=== PATIENT | female | born 1995 | race Caucasian/White ===

== ENCOUNTER 2017-05-30 05:30 | Inpatient (IN) | payer OTHER ==
[~2017-05-30] VITALS: Ht 167.6 cm; Wt 88.9 kg
[~2017-05-30 05:30] MED LIST: DOCU-41 PO; IBUP800T28 PO; OXYC-284 PO; PREN-100 PO
[2017-05-30] MEDS ORDERED: Lactated Ringer's 1,000 ML IV SCH (06:18)
[2017-05-30] MEDS ORDERED: Lactated Ringer's 500 ML IV PRN (06:18)
[2017-05-30] MEDS ORDERED: Ondansetron 2 mg/mL 2 mL Inj IVPUSH PRN (06:20)
[2017-05-30] MEDS ORDERED: hydrALAZINE 20 mg/mL Inj IVPUSH PRN (06:20)
[2017-05-30] MEDS ORDERED: Dexamethasone 4 mg/mL Inj IVPUSH PRN (06:20)
[2017-05-30] MEDS ORDERED: fentaNYL-PF 50 mCg/mL 2 mL Inj IVPUSH PRN ×3 (06:20→07:15)
[2017-05-30] MEDS ORDERED: Phenylephrine 10,000 mCg/mL Inj IVPUSH PRN (06:20)
[2017-05-30] MEDS ORDERED: EPHEDrine Sulfate 50 mg/mL Inj IVPUSH PRN (06:20)
[2017-05-30] MEDS ORDERED: Labetalol 5 mg/mL 20 mL Inj IV PRN (06:20)
[2017-05-30] MEDS ORDERED: Atropine 0.4 mg/mL Inj IVPUSH PRN (06:20)
[2017-05-30] MEDS ORDERED: HYDROmorphone 1 mg/mL Inj IVPUSH PRN (06:20)
[2017-05-30] MEDS ORDERED: MetoCLOpramide 5 mg/mL 2 mL Inj IVPUSH PRN (06:20)
[2017-05-30] MEDS ORDERED: Oxytocin 10 Unit/mL Inj IM PRN ×2 (06:55→10:05)
[2017-05-30] MEDS ORDERED: Carboprost 250 mCg/mL Inj IM PRN ×2 (06:55→10:05)
[2017-05-30] MEDS ORDERED: Oxytocin 30 Units/500 mL LR 30 UNITS in IV Premix 1 EACH IV PRN ×3 (06:55→23:55)
[2017-05-30] MEDS ORDERED: Methylergonovine 0.2 mg/mL Inj IM PRN ×2 (06:55→10:05)
[2017-05-30] MEDS ORDERED: Sodium Chloride LOK Flush 10 mL Syringe IVFLUSH PRN (06:55)
[2017-05-30] MEDS ORDERED: Lactated Ringer's 1,000 ML IV PRN (06:55)
[2017-05-30] MEDS ORDERED: Hemorrhage Kit, Post Partum XX ONE ×2 (06:55→10:05)
[2017-05-30 07:09] LABS: Mean Corpuscular Hemoglobin 26.4 pg (27.0-35.0); Mean Corpuscular Volume 79.5 fL (81-100)
[2017-05-30] MEDS ORDERED: fentaNYL 2 mCg/mL-Bupivicaine 0.125% 100 mL Premix EPIDURAL ONE (07:20)
--- NOTE | 2017-05-30 07:23 | PCM.HPANE ---
Patient Data Date of Service: May 30, 2017 Surgeon Admitting Provider:Adiel Valencia MD Attending Provider:Adiel Valencia MD Primary Care Physician:Christiana Wagner MD Other Provider:Alin Jenkins Anesthesia Reason for Visit Term Labor Ht/WT & BMI Weight (Kilograms): 88.9 Body Mass Index 31.6 Allergies Coded Allergies: No Known Allergies (Unverified Allergy, Unknown, 04/15/14) latex (Verified Allergy, Unknown, 04/16/14) Past Anesthesia History Anesthesia History: Denies:: Abnormal Airway Diabetes History Hx Diabetes?: No MRSA MRSA: No Medications Hypertension Medication: No Home Meds Incl Beta Frank: No Active Scripts Docusate Sodium (Colace)100 Mg [id number] Mg PO BID PRN For Constipation #60 CAPSULE Ref 0 Prov:Adiel Valencia MD 04/18/14 Oxycodone HCl/Acetaminophen 5-325 (Percocet 5-325)1 Each Tablet1-2 Each PO Q4 PRN For Pain #20 TABLET Prov:Adiel Valencia MD 04/18/14 Ibuprofen 800 Mg [id number] Mg PO TID PRN For Pain #30 TABLET Prov:Adiel Valencia MD 04/18/14 Reported Medications Vits #90/Iron Fum/FA ( Formula Tablet)1 Each Tablet1 Each PO DAILY 04/16/14 History History of ENT Problems?: No HEENT History: Denies:: Abnormal Airway Denture Type: None Teeth Condition: Within Normal Limits Hx of Heart Problems?: No Cardiovascular History: Denies:: Cardiac Surgery Chest Pain Hx of Respiratory Problem?: No Respiratory History: Denies:: Asthma Hx Neurologic Problems?: No Neurological History: Denies:: CVA Hx of GI Problems?: No Hx of Problems?: No Female Hx: Positive for:: Currently Hx Musculoskeletal Problems?: No Hx of Psycho/Social Problems?: No Hx Surgeries?: No Hx Diabetes: No Stop/Bang Treated for Sleep Apnea?: No Do You Have a CPAP Machine?: No SHREYAS Risk Assessment: Low Risk, <3 Yes Risk Assessment Category Category 1A: Patient has history of documented sleep apnea, and HAS NOT received any narcotic, sedative or anesthesia administration during this stay. Category 1B: Patient has history of documented sleep apnea, and HAS received any narcotic , sedative or anesthesia administration during this stay Category 2: Patient has SUSPECTED Obstructive Sleep Apnea, and HAS received any narcotic , sedative or anesthesia administration during this stay. Category 3: Patient has SUSPECTED Obstructive Sleep Apnea and HAS NOT received narcotic, sedative or anesthesia administration during this stay. Category 4: Outpatient in Procedural Areas with known sleep apnea or who screen positive for High Risk via the STOP/BANG questionnaire. Exam Exam General Appearance: Alert, Oriented X3, Cooperative HEENT/AIRWAY: Neck Movement (> 3 FB) Lungs: Clear to Auscultation, Normal Air Movement Heart: Regular Rate/Rhythm, Normal S1, Normal S2 Meds/Labs/Diagnostics Labs Plt 181 Plan Impression Patient chart reviewed, patient interviewed and anesthestic plan with risks, benefits, and alternatives discussed, and informed consent obtained. NPO per Anesth. Guidelines: No ASA Physical Status: ASA2 Mod Systemic Disease Anesthetic Plan: Epidural Bene/Risks/Altern/Consents: Yes HP Complete Prior to Induction: Yes Steven Eden MD May 30, 2017 06:16
--- NOTE | 2017-05-30 08:15 | HP ---
[address] [address] HISTORY AND PHYSICAL PATIENT: RIVER FERNANDEZ : 1995 MR#: [id number] ADMIT: 05/30/2017 JOB ID: [id number] CHIEF COMPLAINT: Contractions. HISTORY OF PRESENT ILLNESS: This is a 21-year-old obstetrical patient of mine who is a 2, para 1 at 40 and 6 weeks estimated gestational age who presents to labor and delivery complaining of increasing frequency of painful contractions starting about 3 o'clock this morning. She reports no vaginal discharge and has no other acute complaints except for the contractions. Upon examination she is found to be akua about every 2-3 minutes with strong contractions. heart tracing is reactive but with variables and a few late scattered around after some contractions. She is 5.5 cm, 80% effaced, posterior position at about -2 station. She was admitted for expectant management. PAST MEDICAL HISTORY: Patient's obstetrical history is significant for prior vaginal in 2013 at 41 weeks of a 6 pounds 14 ounce baby girl without significant problems although that towards the end was complicated with some -induced hypertension. This has not been associated with hypertension and this has been fairly unremarkable with a little bit of late presentation to care at 11 weeks gestation. Her labs show blood type to be O-positive, rubella immune, negative to hepatitis B, hep C, HIV, HSV 1 and 2 and negative antibody screen. Hematocrit at 11 weeks was 39.5 and at 37 weeks it was 33.4. Initial Pap smear and gonorrhea and chlamydia are all negative. Hemoglobin A1c at initial presentation was 5.2, and the patient declined diabetic screening at 28 weeks. MSAFP test was negative. GBS test was negative. The whole course has been unremarkable. PAST MEDICAL HISTORY: Is significant for some depression for which she had been treated with sertraline but has not been on that medicine during her . Also she has a history of eczema. Otherwise medical history is entirely unremarkable. SURGICAL HISTORY: Entirely negative. CURRENT MEDICATIONS: vitamins. Otherwise she is on no regular medications. ALLERGIES: She has no known drug allergies, although she does state she is allergic to LATEX. FAMILY HISTORY: Significant for diabetes in her brother and maternal grandparents and hypertension in her brother and her mother. Otherwise is noncontributory. SOCIAL HISTORY: The patient lives in [place] with her fiance and 2-year-old daughter. 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 The patient is a nonsmoker having quit in August 2016. She does not drink any alcohol. REVIEW OF SYSTEMS: Denies any recent illness. No chest pain, palpitations, shortness of breath. No abdominal pain except for the contraction pain. No significant swelling in her feet. No recent illness. The baby has been moving every day. No headaches. No blurry vision. OBJECTIVE: Well-developed, well-nourished woman in no apparent distress. She is afebrile. Pulse is 83, respiratory rate is 22, blood pressure 134/78. Lungs are clear to auscultation bilaterally with good air movement. Heart is regular rate and rhythm. No significant murmurs heard. Abdomen is gravid with normoactive bowel sounds. Otherwise is unremarkable. Extremities showed no pitting edema, but her feet are a little puffy. She has normal deep tendon reflexes. Cervical examination, cervix being 5.5 cm, 80% effaced, -2 station. ASSESSMENT AND PLAN: Intrauterine , at term, in labor. PLAN: The patient was admitted and will provide routine expectant management. Her GBS status is negative. She is interested in an epidural and I have already spoken to Anesthesia about providing that service for her. I anticipate a rapid labor progress as she rapidly delivered with her prior . She is interested in getting a tubal ligation and this has been arranged and an obstetrical consultation was performed and there is a signed tubal ligation consent form in the chart dated March 31. We hope to arrange this shortly after her delivery.
[2017-05-30] MEDS ORDERED: Witch Hazel-Glycerin Pads TOPICAL PRN (10:05)
[2017-05-30] MEDS ORDERED: LANOlin HPA 7 Gm Ointment TOPICAL PRN (10:05)
[2017-05-30] MEDS ORDERED: Benzocaine (Dermoplast) 20% 60 Gm Spray TOPICAL PRN (10:05)
--- NOTE | 2017-05-30 10:57 | OP ---
[address] [address] OPERATIVE REPORT PATIENT: RIVER FERNANDEZ : 1995 MR#: [id number] ADMIT: 05/30/2017 JOB ID: [id number] DATE OF SURGERY: 05/30/2017 SURGEON: Adiel Valencia M.D. PREOPERATIVE DIAGNOSIS(ES): POSTOPERATIVE DIAGNOSIS(ES): The patient had a spontaneous vaginal delivery as described below. PROCEDURE: Normal spontaneous vaginal delivery. Please see my admission history and physical for her admitting circumstances. She had an epidural placed and this was very effective in helping her with her discomfort. She progressed fairly rapidly throughout the end of the first stage of labor. The baby's heart tracing showed a low baseline around 120 and sometimes lower into about 100 with some variables and some late occasionally with contractions. Otherwise the heart tracing showed nice reactivity with accelerations. She contracted fairly regularly every 2-3 minutes. Artificial rupture of membranes was performed at 8:57 showing clear fluid when she was 8 cm and completely effaced. She was found to be completely dilated and effaced at 9:30 and began pushing. The baby was in an occiput anterior position. She delivered the baby's head and there was a tight nuchal cord that was not able to be reduced before she delivered the rest of the baby. The delivery was completed at 9:42. The placenta delivered spontaneously and intact at 9:51. Her perineum was inspected and there was left-sided periurethral laceration that was not actively bleeding and was left to heal spontaneously. Cervix showed no significant trauma. There were no other lacerations noted and there were no other complications. Estimated blood loss 350 cc. The baby is a baby boy with Apgars of 8 and 9, and weight is still pending. Anticipate routine care and orders were written. The patient is interested in having a bilateral tubal ligation done and the consent form was signed back in March and she has seen obstetrics for consultation already. This procedure will probably be done late this afternoon or tomorrow morning. I anticipate the patient will be able to be discharged tomorrow provided everything is going smoothly.
--- NOTE | 2017-05-30 13:29 | PCM.CONSUR ---
Subjective Date of Service: May 30, 2017 History of Present Illness This is a 21-year-old now 2, para 2 who delivered at 40 and 6 weeks estimated gestational age after presenting to labor and delivery complaining of increasing frequency of painful contractions starting about 3 o'clock this morning. She reported no vaginal discharge and has no other acute complaints except for the contractions. She was akua about every 2-3 minutes with strong contractions. She was found to be 5.5 cm, 80% effaced, posterior position at about -2 station. She was admitted for expectant management. She delivered at 9:42 am. She desires permanent sterilization and has been seen by Dr Powell in clinic and consented at that time. Allergy Allergies: Coded Allergies: No Known Allergies (Unverified Allergy, Unknown, 04/15/14) latex (Verified Allergy, Unknown, 04/16/14) Medications Hypertension Medication: No Home Meds Incl Beta Blockers: No Docusate Sodium (Colace) 100 Mg Capsule 100 MG PO BID PRN PRN For Constipation Prescribed by: BYRON SAMUEL MD Ibuprofen (Ibuprofen) 800 Mg Tablet 800 MG PO TID PRN PRN For Pain Prescribed by: BYRON SAMUEL MD Ibuprofen (Ibuprofen) 800 Mg Tablet 800 MG PO Q6H PRN PRN For Pain Prescribed by: BYRON SAMUEL MD Oxycodone HCl/Acetaminophen 5-325 (Percocet 5-325) 1 Each Tablet 1-2 EACH PO Q4 PRN PRN For Pain Prescribed by: BYRON SAMUEL MD Vits #90/Iron Fum/FA ( Formula Tablet) 1 Each Tablet 1 EACH PO DAILY (Reported) oxyCODONE-Acetaminophen 5-325 mg (oxyCODONE-Acetaminophen 5-325 mg) 1 Each Tablet 1-2 TAB PO Q4H PRN PRN For Pain Prescribed by: BYRON SAMUEL MD Past Surgical History Surgeries: No Patient/Family Past Surgical: Denies:: Anesthesia Reactions, Blood Transfuse Reaction, Blood Transfusions, Malignant Hyperthermia Social History Hx Alcohol Use: No Hx Substance Use: No Hx Tobacco Use: No PMH HEENT History History of ENT Problems?: No HEENT History: Denies:: Abnormal Airway Cardiovascular History History of Heart Problems?: No Cardiovascular History: Denies:: Cardiac Surgery Chest Pain Respiratory History of Respiratory Problem: No Respiratory History: Denies:: Asthma Neurological History Hx Neurologic Problems?: No Neurological History: Denies:: CVA Gastrointestinal History HX of GI Problems?: No Genitourinary History Hx of Gu Problems?: No Female/Male History Reproductive History Female: Positive for: Currently ? Musculoskeletal History Hx Musculoskeletal Problems?: No Psycho Social History Hx of Psycho/Social Problems?: No Other History Diabetes: No Social History Smoking Status: Never Smoker Objective Exam Lab & Micro Results Laboratory Tests Test 05/30/17 06:30 White Blood Count 10.6th/mm3 (3.8-10.1) Red Blood Count 4.43mil/mm3 (3.90-5.20) Hemoglobin 11.7g/dL (12.0-15.6) Hematocrit 35.2% (35.0-46.0) Mean Corpuscular Volume 79.5fL (81-100) Mean Corpuscular Hemoglobin 26.4pg (27.0-35.0) Mean Corpuscular Hemoglobin Concent 33.2% (32.0-37.0) Red Cell Distribution Width 14.5% (12.3-15.4) Platelet Count 181bil/L (150-400) Result Diagram: 05/30/17 0630 Review of Systems: Constitutional: Negative, except as otherwise mentioned in the history above. Ophthalmologic: Negative, except as otherwise mentioned in the history above. Cardiovascular: Negative, except as otherwise mentioned in the history above. Respiratory: Negative, except as otherwise mentioned in the history above. Gastrointestinal: Negative, except as otherwise mentioned in the history above. Genitourinary: Negative, except as otherwise mentioned in the history above. Musculoskeletal: Negative, except as otherwise mentioned in the history above. Neurological: Negative, except as otherwise mentioned in the history above. Psychiatric: Negative, except as otherwise mentioned in the history above. Hematologic/Lymphatic: Negative, except as otherwise mentioned in the history above. Allergic/Immunologic: Negative, except as otherwise mentioned in the history above. H&P Surgical Exam Exam General: Alert, Oriented X3, Cooperative HEENT: Within normal limits & unremarkable Respiratory: Clear to Auscultation Cardiac: Regular Rate/Rhythm, Complains of Chest Pain Breasts: Not Indicated Pelvic: Not Indicated Assessment & Plan Assessment Bilateral Tubal ligation - NPO after midnight - Pain will be managed with PO meds Problems: (1) Sterilization consult Status: Resolved ICD Code: Z30.09 Resuscitation Status: CPR: Attempt Resuscitation Attending Statement: The patient was seen and examined together with Paula Peters DO on 2016 and I agree with the history, exam and plan as outlined in the note above. Paula Kim DO May 30, 2017 13:29 Rodrigo Flores MD Jun 03, 2017 19:32
[2017-05-30] MEDS: Lactated Ringer's 1,000 ML IV SCH (18:04)
[2017-05-30] MEDS: Ascorbic Acid 500 mg Tablet PO SCH (20:06)
[2017-05-31] MEDS: oxyCODONE-Acetamin 5-325 mg Tablet PO PRN ×4 (00:20→16:03)
[2017-05-31] MEDS: Lactated Ringer's 1,000 ML IV SCH ×3 (02:04→10:04)
[2017-05-31 06:42] LABS: Mean Corpuscular Hemoglobin 25.8 pg (27.0-35.0); Mean Corpuscular Volume 80.9 fL (81-100)
[2017-05-31] MEDS ORDERED: Sodium Citrate-Citric Acid 15 mL Solution PO ONE (07:25)
[2017-05-31] MEDS ORDERED: Sodium Citrate-Citric Acid 15 mL Solution ONE (07:37)
--- NOTE | 2017-05-31 07:48 | PCM.SURGPR ---
Pre-Op Interval Note See H&P Dated: May 30, 2017 Changes made to H&P Abdomen soft and nontender. Fundus firm and non-tender at umbilicus. Pre-Op Interval Note Changes made to H&P Prior to obtaining written consent for performance of a post- bilateral tubal ligation (PPBTL), I personally counselled the patient and her regarding the indications, alternatives, risks and complications associated with PPBTL. In addition the patient understands that a PPBTL is intended to produce permanent, irreversible inability to conceive children in the future. In additon she understand that a PPBTL carries with it a small (@ .5%) risk of failure to prevent conception. With full understanding of the above the written consent was sign before a witness and we'll be proceeding with the procedure this AM. Cezar Frausto MD May 31, 2017 07:48
--- NOTE | 2017-05-31 07:50 | PCM.HPANE ---
Patient Data Surgeon Admitting Provider:Adiel Valencia MD Attending Provider:Adiel Valencia MD Primary Care Physician:Christiana Wagner MD Other Provider:Alin Jenkins Anesthesia Reason for Visit Term Labor TERM LABOR Ht/WT & BMI Weight (Kilograms): 88.9 Body Mass Index Allergies Coded Allergies: No Known Allergies (Unverified Allergy, Unknown, 04/15/14) latex (Verified Allergy, Unknown, 04/16/14) Past Anesthesia History Anesthesia History: Denies:: Abnormal Airway, Anesthesia Reactions, Malignant Hyperthermia Diabetes History Hx Diabetes?: No MRSA MRSA: No Medications Hypertension Medication: No Home Meds Incl Beta Frank: No Active Scripts Docusate Sodium (Colace)100 Mg [id number] Mg PO BID PRN For Constipation #60 CAPSULE Ref 0 Prov:Adiel Valencia MD 04/18/14 Oxycodone HCl/Acetaminophen 5-325 (Percocet 5-325)1 Each Tablet1-2 Each PO Q4 PRN For Pain #20 TABLET Prov:Adile Valencia MD 04/18/14 Ibuprofen 800 Mg [id number] Mg PO TID PRN For Pain #30 TABLET Prov:Adiel Valencia MD 04/18/14 Reported Medications Vits #90/Iron Fum/FA ( Formula Tablet)1 Each Tablet1 Each PO DAILY 04/16/14 History History of ENT Problems?: No HEENT History: Denies:: Abnormal Airway Denture Type: None Teeth Condition: Within Normal Limits Hx of Heart Problems?: No Cardiovascular History: Denies:: AICD Abdominal Aortic Aneurism Atrial Fibrillation Cardiac Surgery Chest Pain Congestive Heart Failure Coronary Artery Disease Edema Heart Murmur Hypertension Irregular Heartbeat Pacemaker Peripheral Vascular Rheumatic Fever Thrombophlebitis Valvular Heart Disease Hx of Respiratory Problem?: No Respiratory History: Denies:: Asthma COPD Chest Surgery Cough Dyspnea Emphysema Hemoptysis Oxygen Administration Pneumonia Pulmonary Embolism Tuberculosis Use of C-PAP Machine Use of Inhalers / NEBS Hx Neurologic Problems?: No Neurological History: Denies:: CVA Hx of GI Problems?: No Hx of Problems?: No Female Hx: Positive for:: Currently Hx Musculoskeletal Problems?: No Hx of Psycho/Social Problems?: No Hx Surgeries?: No History Blood Transfusions: Denies:: Blood Transfuse Reaction Blood Transfusions Hx Diabetes: No Hx Alcohol Use: NoHx Substance Use: No Smoking Status: Never Smoker Stop/Bang Treated for Sleep Apnea?: No Do You Have a CPAP Machine?: No SHREYAS Risk Assessment: Low Risk, <3 Yes Risk Assessment Category Category 1A: Patient has history of documented sleep apnea, and HAS NOT received any narcotic, sedative or anesthesia administration during this stay. Category 1B: Patient has history of documented sleep apnea, and HAS received any narcotic , sedative or anesthesia administration during this stay Category 2: Patient has SUSPECTED Obstructive Sleep Apnea, and HAS received any narcotic , sedative or anesthesia administration during this stay. Category 3: Patient has SUSPECTED Obstructive Sleep Apnea and HAS NOT received narcotic, sedative or anesthesia administration during this stay. Category 4: Outpatient in Procedural Areas with known sleep apnea or who screen positive for High Risk via the STOP/BANG questionnaire. Low Risk, <3 Yes Exam Exam General Appearance: Alert, Oriented X3, Cooperative HEENT/AIRWAY: Neck Movement (> 3 FB) Lungs: Clear to Auscultation, Normal Air Movement Heart: Regular Rate/Rhythm, Normal S1, Normal S2 Meds/Labs/Diagnostics Admission Meds Current Medications Lactated Ringer's (Lr) 1,000 ml @ 125 mls/hr Q8H IV Last administered on 07:43; Start 05/30/17 at 10:04 Ferrous Sulfate (Feosol) 325 mg BIDWM PO Last administered on 05/30/17 20:06; Start 05/30/17 at 17:30 Ascorbic Acid (Vitamin C) 500 mg BIDWM PO Last administered on 05/30/17 20:06 ; Start 05/30/17 at 17:30 Citric Acid/ Sodium Citrate (Bicitra) 15 ml ONCE ONCE PO Last administered on 05/31/17 07:43; Start 05/31/17 at 07:25; Stop 05/31/17 at 07:27; Status DC Labs Test 05/31/17 06:26 White Blood Count 13.8th/mm3 (3.8-10.1) Red Blood Count 3.83mil/mm3 (3.90-5.20) Hemoglobin 9.9g/dL (12.0-15.6) Hematocrit 31.0% (35.0-46.0) Mean Corpuscular Volume 80.9fL (81-100) Mean Corpuscular Hemoglobin 25.8pg (27.0-35.0) Mean Corpuscular Hemoglobin Concent 31.9% (32.0-37.0) Red Cell Distribution Width 14.6% (12.3-15.4) Platelet Count 201bil/L (150-400) Plan Impression Patient chart reviewed, patient interviewed and anesthestic plan with risks, benefits, and alternatives discussed, and informed consent obtained. NPO per Anesth. Guidelines: No ASA Physical Status: ASA1 Normal Healthy Anesthetic Plan: SAB Bene/Risks/Altern/Consents: Yes HP Complete Prior to Induction: Yes Moustapha Lang MD May 31, 2017 07:50
[2017-05-31] MEDS: Ascorbic Acid 500 mg Tablet PO SCH ×2 (08:00→17:50)
[2017-05-31] MEDS ORDERED: Dexamethasone 4 mg/mL Inj IVPUSH PRN (08:50)
[2017-05-31] MEDS ORDERED: fentaNYL-PF 50 mCg/mL 2 mL Inj IVPUSH PRN (08:50)
[2017-05-31] MEDS ORDERED: Ondansetron 2 mg/mL 2 mL Inj IVPUSH PRN (08:50)
[2017-05-31] MEDS ORDERED: EPHEDrine Sulfate 50 mg/mL Inj IVPUSH PRN (08:50)
[2017-05-31] MEDS ORDERED: MetoCLOpramide 5 mg/mL 2 mL Inj IVPUSH PRN (08:50)
[2017-05-31] MEDS ORDERED: Lactated Ringer's 1,000 ML IV PRN (08:50)
[2017-05-31] MEDS ORDERED: Atropine 0.4 mg/mL Inj IV PRN (08:50)
--- NOTE | 2017-05-31 08:51 | PCM.ANEP1 ---
Post Anesthesia PACU Phase 1 Assessment Anesthetic Administered: SAB Level of Alertness: Awake, talking DIETZ's with Equal Strength: No (spinal) Pain: No Pain Scale Score: 5 Nausea or Vomiting: No CV Function & Hydration Stable: Yes Airway Device: Oxygen Delivery: Room Air Lungs: Clear to Auscultation, Normal Air Movement PACU Phase 2 Assessment Complications: No Patient Instructions Provided: N/A Moustapha Lang MD May 31, 2017 08:51
--- NOTE | 2017-05-31 08:53 | PCM.SURGPO ---
Immediate Operative Note Date of Surgery: May 31, 2017 Pre Operative Diagnosis Multiparity Elective sterilization Post Operative Diagnosis Same as above S/P Post- bilateral tubal ligation Procedure Post- bilateral tubal ligation ([place] technique) Surgeon and Rectification Printer Surgeon: Reynaldo Prince MD Assistants: None Abi Cantor MD Findings Normal post anatomy. Normal fallopian tubes with fimbria visualized bilaterally. Complications There were no periprocedural complications identified. Surgical Specimen Removed: Yes Specimen sent to Pathology: Yes Surgical Specimen description: Fallopian tube segments, bilateral, labelled Right and Left ()separate specimens) Anesthetic Administered: Regional Block Grafts, Implants: None Output, Estimated Blood Loss: 25 Blood Admin during surgery: No Additional information Following the PPBTL, patient was return to her LDRP room in stable condition. Attending Statement N/A Cezar Prince MD May 31, 2017 08:53
--- NOTE | 2017-05-31 09:14 | PCM.SURGOP ---
Surgical Operative Report Date of Service: May 31, 2017 Pre Operative Diagnosis Multiparity Elective sterilization Post Operative Diagnosis Same as above S/P Post- bilateral tubal ligation Procedure: Post- bilateral tubal ligation ([place] technique) Surgeon and Mold Mover: Surgeon: Reynaldo Prince MD Assistants: Joaquín Cantor MD (assistance required for reasons of patient safety ) Indication for Procedure Patient is a 21 yo who electively has chosen PPBTL for purposes of sterilization. Findings: Normal post anatomy. Normal fallopian tubes with fimbria visualized bilaterally. Procedure Details Post- bilateral tubal ligation ([place] technique) With the patient under satisfactory spinal block anesthesia in the dorsal supine position, an aseptic surgical field was created and a pre-surgical timeout was performed by anesthesia, the OR Nurse, the registered pharmacy technician, and primary surgeon per [facility] protocol. Sufficient nina-umbilical anesthesia was assured prior to making a 4 cm transverse, sub-umbilical incision. The dissection was carried down to the deep fascia which was incised transversely and the peritoneum was entered bluntly. The uterine fundus was visualized with ease and the entire length of the right fallopian tube was visualized with the assistance of two appendiceal retractors. A [place] clamp was used to elevated a loop of the mid-isthmic tube on the right and an avascular space in the underlying mesosalpinx was identified. The mesosalpinx was perforated with a curved hemostat and two strands of 0 plain catgut suture were passed through the defect. Each strand of the plain suture was used ti ligate the proximal and distal margins of the excised portion of tube. The segment was excised with Metzenbaum scissors, the site carefully inspected for bleeding and with complete hemostasis assured, the sutures were cut and ligated tube replaced in the abdomen. The left fallopian tube was identified in it's entirety and the mid-portion elevated into the incision. An avascular space in the underlying left mesosalpinx was identified. The mesosalpinx was perforated with a curved hemostat and two strands of 0 plain catgut suture were passed through the defect. Each strand of the plain suture was used to ligate the proximal and distal margins of the excised portion of tube. The segment was excised with Metzenbaum scissors, the site carefully inspected for bleeding and with complete hemostasis assured, the sutures were cut and ligated tube replaced in the abdomen. The fascia was identified and both end of the incision were grasped with Demetris clamps. A running 0-vicryl suture was then used to close the fascia and there was no bleeding noted in the subcutaneous space. The skin edges were reapproximated with 4-0 monocryl sutre with a running subcuticular closure. Benzoin adhesive and steri-strips were applied. A dressing was then applied and the procedure concluded with the patient having tolerated the procedure well. Complications There were no periprocedural complications identified. Surgical Specimen Removed: Yes Specimen sent to Pathology: Yes Surgical Specimen description: Fallopian tube segments, bilateral, labelled Right and Left (separate specimens) Anesthetic Plan: Regional Block Grafts, Implants: None Output, Estimated Blood Loss: 25 Blood Administration during lomeli: No Drains: None Catheters: None Post Operative Plan Return patient in stable condition to her LDRP room. The patient will be discharged at the discretion of her delivering physician. The patient and her were subsequently counselled re: precautionary symptoms, medications, and plans for follow-up related to her PPBTL. Attending Statement N/A copies to: Adiel Valencia MD,Cezar Porter MD May 31, 2017 09:14
--- NOTE | 2017-05-31 18:44 | PCM.DIOB ---
Obstetrical Disch Instruction Date of Service: May 31, 2017 Dates of Hospitalization Date of Hospital Admission May 30, 2017 at 06:02 Providers Admitting Physician: Adiel Valencia MD Primary Care Physician: Christiana Wagner MD Attending Physician: Adiel Valencia MD Discharge Diagnosis Post Operative diagnosis Same as above S/P Post- bilateral tubal ligation Problems: (1) Sterilization consult Status: Resolved ICD Code: Z30.09 Diet Discharge Diet: No restrictions Activity Discharge Activity-General: Pelvic Rest for 6 weeks, Try not to overdue, Be up and about, Balance rest and activity Dressing and Incisional Care Dressing Care: Keep dressing clean, dry & intact, Allow Steri Stripes to fall off Hygiene: May shower after (24 hours) Follow Up Plan Follow Up Plan f/u with Dr. Valencia in 6 weeks and as needed. Follow-up Provider (F9): Adiel Valencia MD Follow-up appointment: Weeks (six) Call your provider for: Fever or Chills, Shortness of breath, Heavy vaginal bleeding, Heavy bleeding, Epigastric pain, Excessive constipation, Vaginal discomfort, Red painful breasts Adiel Valencia MD May 31, 2017 18:44
[2017-05-31] MEDS ORDERED: IBUP800T28 PO (18:45)
[2017-05-31] MEDS ORDERED: OXYC1TAB24 PO (18:45)
--- NOTE | 2017-05-31 19:25 | DIS ---
[address] [address] DISCHARGE SUMMARY PATIENT: RIVER FERNANDEZ : 1995 MR#: [id number] ADMIT: 05/30/2017 JOB ID: [id number] DIS: DISCHARGE DIAGNOSIS: Spontaneous vaginal delivery at term. HISTORY AND PHYSICAL: Please see my admission H and P for details. CONSULTATIONS: None. PROCEDURES: 1. Patient had a spontaneous vaginal delivery on the morning of May 30--see my delivery note for full details. 2. Bilateral tubal ligation performed on May [address] Cantor--please see her surgical note for details. HOSPITAL COURSE: The patient was admitted early in the morning on May 30 in active labor and proceeded to progress normally and fairly quickly through the morning and she was uncomfortable and requested an epidural. This was placed with excellent results. She then became completely dilated and effaced and began pushing and fairly rapidly delivered her baby without significant problems. See my delivery note for full details. course has been fairly unremarkable although she did have a little bit more hemorrhaging than usual and this was treated very easily with a round of Pitocin starting at approximately 12 hours after she had delivered. For the subsequent 12-18 hours she has had no significant lochia. She also had a tubal ligation this morning performed by Dr. Cantor. Please see her surgical note for details. She has recovered nicely from that and is able to get up and move around and take care of her activities of daily living independently, although she certainly has a little bit sore in her abdomen. At this point she does not have any acute complaints except for sore abdomen. Specifically reports decreasing lochia and no significant perineal discomfort nor any breast discomfort. OBJECTIVE: Well-developed, well-nourished woman in no apparent distress. Her vital signs are normal and stable. Lungs are clear to auscultation bilaterally with good air movement. Heart is regular rate and rhythm. No significant murmurs heard and abdomen is soft, nontender. Her uterus is firm and below the umbilicus. Extremities show no significant edema and normal deep tendon reflexes. The abdomen is nontender except for in the area of her abdominal incisions. ASSESSMENT/PLAN: Status post spontaneous vaginal delivery and tubal ligation. The patient is clinically stable now and ready for discharge. She will be discharged home with instructions to follow up in six weeks otherwise as needed as well as follow up with her surgeon as instructed regarding the tubal ligation. Will discharge her with ibuprofen to use p.r.n. for pain as well as 30 tablets of Percocet to use p.r.n. for breakthrough pain.
[2017-05-31 20:21] VITALS: BP 133/80; PULSE 74; RESP 18
[2017-05-31] MEDS ORDERED: fentaNYL-PF 50 mCg/mL 2 mL Inj ONE (21:44)
[2017-05-31] MEDS ORDERED: Propofol 10 mg/mL 20 mL Inj ONE (21:44)
--- NOTE | 2017-06-02 11:36 | PATH ---
SURGICAL PATHOLOGY Attending Physician:Cezar Prince CASE STATUS: Signed Out PATIENT NAME: RIVER FERNANDEZ PID: [id number] : 1995 DATE COLLECTED:05/31/2017 13:54 SPECIMEN: 1: Fallopian Tube, Sterilization 2: Fallopian Tube, Sterilization CLINICAL HISTORY: MULTIPARITY ELECTIVE STERILIZATION 1. PORTION OF LEFT FALLOPIAN TUBE 2. PORTION OF RIGHT FALLOPIAN TUBE FINAL DIAGNOSIS: 1.PORTION OF LEFT FALLOPIAN TUBE, PARTIAL RESECTION: FULL-THICKNESS CROSS-SECTIONS OF ONE SEGMENT OF FALLOPIAN TUBE IDENTIFIED. 2.PORTION OF RIGHT FALLOPIAN TUBE, PARTIAL RESECTION: FULL-THICKNESS CROSS-SECTIONS OF ONE SEGMENT OF FALLOPIAN TUBE IDENTIFIED. ICD10 Z30.2 GROSS DESCRIPTION: The specimens are received unfixed, labeled with the patient's name, and sublabeled as the following: (1) portion of L fallopian tube; (2) portion of R fallopian tube. Next (1) The specimen consists of a non-fimbriated segment of fallopian tube (length-1.8 cm, diameter-0.3 cm). Section code: (1A) fallopian tube segment, serially sectioned, players club representative. (2) The specimen consists of a non-fimbriated segment of fallopian tube (length-1.8 cm, diameter-0.3 cm). Section code: (2A) fallopian tube segment, serially sectioned, players club representative. 05/31/17 MICRO DESCRIPTION: See diagnosis. ICD-9 CODES: CPT CODES: 1: 81680 2: 74042 Electronically Signed Out Luiz Pleitez MD, PhD [facility], [place] [address] Technical component performed at [facility], [facility] [address], [place], [address]
== END 2017-05-31 21:45 | disposition home or self-care (01) | DRG 767 ==
LOC: FBCO 05:30 → FBC 06:02
PROVIDERS: ADMIT Family Medicine; ATTEND Family Medicine
PROC: 10E0XZZ Delivery of Products of Conception, External Approach (ICD-10-PCS; principal; 2017-05-30)
PROC: 10907ZC Drainage of Amniotic Fluid, Therapeutic from Products of Conception, Via Natural or Artificial Opening (ICD-10-PCS; 2017-05-30)
PROC: 0UL73ZZ Occlusion of Bilateral Fallopian Tubes, Percutaneous Approach (ICD-10-PCS; 2017-05-31)
DX: O76 Abnormality in fetal heart rate and rhythm complicating labor and delivery (principal); O69.1XX0 Labor and delivery complicated by cord around neck, with compression, not applicable or unspecified; Z30.2 Encounter for sterilization; Z3A.40 40 weeks gestation of pregnancy; Z37.0 Single live birth